=== PATIENT | male | born 1945 | race Caucasian/White ===

== ENCOUNTER 2024-03-05 05:54 | Day surgery (SDC) | payer OTHER ==
[2024-02-13 14:14] VITALS: BP 120/77
[~2024-03-05] VITALS: Ht 180.3 cm; Wt 79.5 kg
[~2024-03-05 05:54] MED LIST: CALCIUM500 MG PO; CEFAZOLIN SODIUM 2 GM/20 ML SYR IV SCH; COD LIVER OIL1 EAC2 PO; COREG12.5 MG PO; COZAAR100 MG PO; EFFEXOR XR75 MG PO; IBLOOD GLUCOSE TEST STRIP 1 EA TEST VI PRN; LACTATED RINGER'S 1,000 ML IV SCH; LIDOCAINE HCL 1% 5 ML SDV INJ ONE; LIPITOR10 MG; MIDAZOLAM HCL 5 MG/5 ML VIAL IV PRN; OZEMPIC1 MG/0.71 SQ; PROTONIX40 MG PO; REFRESH OPTIVE15 ML; REMERON30 M1 PO; SYNJARDY 5-5001 EACH PO; TOUJEO MAX300 UNIT/1; fentaNYL citrate 100 MCG/2 ML VIAL IV PRN
[2024-03-05 06:09] VITALS: BP 128/79
[2024-03-05 06:22] LABS: BASOPHILS 1.2 % (0-2); EOSINOPHILS 4.5 % (0-6); HEMATOCRIT 38.4 % (35.0-50.0); HEMOGLOBIN 12.8 g/dL (12.0-18.0); LYMPHOCYTES 26.8 % (24-44); MCH 33.1 (27-36); MCHC 33.5 g/dl (30-36); MCV 98.8 fl (81-99); MONOCYTES 6.6 % (0-12); NEUTROPHILS 60.9 % (39-80); PLATELET COUNT 294 K/uL (140-440); RBC 3.88 M/ul (4.3-5.7); RDW 14.9 (10.5-15.0)
[2024-03-05] MEDS ORDERED: GLUCOSAMINE HC500 MG PO (06:23)
[2024-03-05 06:41] LABS: ALBUMIN 3.6 g/dL (3.4-5.0); ANION GAP 14.1 (7-21); BILIRUBIN, TOTAL 0.3 ng/dL (0.2-1.0); BUN/CREATININE RATIO 17.53 (6.0-28.6); CALCIUM 8.9 mg/dL (8.5-10.1); CREATININE, SERUM 1.54 mg/dL (0.70-1.30); POTASSIUM 4.1 mmol/L (3.5-5.1); PROTEIN, TOTAL 7.2 g/dL (6.4-8.2)
[2024-03-05] MEDS ORDERED: LIDOCAINE HCL 2% 5 ML SDV ONE (06:50)
[2024-03-05] MEDS ORDERED: propofoL 200 MG/20 ML VIAL ONE (06:50)
[2024-03-05] MEDS ORDERED: IBLOOD GLUCOSE TEST STRIP 1 EA TEST VI PRN (07:00)
[2024-03-05] MEDS ORDERED: CEFAZOLIN SODIUM 2 GM/20 ML SYR IV SCH (07:00)
[2024-03-05] MEDS ORDERED: LIDOCAINE HCL 1% 5 ML SDV INJ ONE (07:00)
[2024-03-05] MEDS ORDERED: LACTATED RINGER'S 1,000 ML IV SCH (07:00)
--- NOTE | 2024-03-05 07:53 | NUR ---
03/05/24 0755 Archana Royal [id number]-PT ARRIVES TO PACU RESTING SEMI FOWLERS, PT TALKING W/ STAFF DENIES PAIN, C/O NAUSEA BUT REPORTS THIS IS CHRONIC. VSS ON RA, RR EVEN AND UNLABORED.
[2024-03-05] MEDS ORDERED: ondansetron HCL 4 MG/2 ML VIAL IV ONE (08:15)
[2024-03-05 08:17] VITALS: BP 130/78
--- NOTE | 2024-03-05 09:48 | OR ---
[facility] [address], [place] [address] Signed DATE OF OPERATION: 03/05/2024 SURGEON: Gibson Delgado MD PREOPERATIVE DIAGNOSIS: 1. Chronic gastroesophageal reflux disease with generalized abdominal pain, nausea, and bloating. 2. Dark stools. 3. History of peptic ulcer disease in 2012. 4. Chronically dilated pancreatic and common bile duct, status post cholecystectomy. POSTOPERATIVE DIAGNOSIS: Questionable tiny healing ulcer in pyloric bulb. PROCEDURE: Esophagogastroduodenoscopy with CLOtest and biopsies of the antrum. ESTIMATED BLOOD LOSS: None. INDICATIONS: Jay Jay is a 78-year-old significantly disabled gentleman, who has been dealing with chronic acid reflux associated with generalized abdominal pain, nausea, and bloating for many years. In fact, he had his gallbladder out a number of years ago. He now has a dilated pancreatic and common bile duct. He has been to multiple upper and lower endoscopies. Dr. Shane Tabares performed his upper endoscopy and colonoscopy in 2012. Apparently, he had a gastric ulcer at that time. H pylori was negative. He then had upper and lower endoscopy with Dr. Trace Freeman, which was unremarkable. He has been using Protonix 40 mg each day. He just went to a right total hip replacement a number of months ago in [place], [place]. He was on aspirin for 30 days postoperatively. Overall, he seems to done well in that regard. He is worried about his hemochromatosis. He said he has been treated in three years. He had his hemoglobin is about 14. He has been reviewing this with his primary care provider. He has been declining additional colonoscopies despite his father having colon cancer at age 60. He said he cannot tolerate the rapid MiraLAX bowel prep. He is aware that he can take MiraLAX slowly throughout the entire day along with some Dulcolax tablets. He did have a CT scan of his abdomen and pelvis in [place], [place] in September of 2023. It showed an atrophic pancreas with his dilated pancreatic and common bile ducts. No obvious masses. He was asked to see me with respect to his ongoing symptoms. He thinks he might have been having some dark stools. In the office, I gave him a pamphlet on upper endoscopy. Electronically Signed By: GIBSON DELGADO MD 03/05/24 0948 PATIENT NAME: JAY JAY DALEY OPERATIVE REPORT DATE OF : 47 REPORT #: [id number] PHYSICIAN: GIBSON DELGADO MD PCP: OTHER PCP REPORT IS CONFIDENTIAL AND NOT TO BE RELEASED WITHOUT AUTHORIZATION [facility] [address], [place] [address] Signed He recalls this as well. There is risk including, but not limited to gas bloating, crampy abdominal pain, bleeding, perforation requiring surgery, and missed diagnosis. We also reviewed the fact that no laxatives are needed for the upper endoscopy. He also has a very flexed stiff neck and significant medical issues. He also has decreased functional status. He clearly needs monitored anesthesia care with propofol infusion. He required preoperative blood work and an EKG. We were able to get those from his recent hip replacement. He said his brother would take him home afterwards. His brother declined any surgical updates. Jay Jay had expressed understanding and wished to proceed. DESCRIPTION OF PROCEDURE: Jay Jay was taken into our endoscopy suite and placed in the supine semi-recumbent position. He was given monitored anesthesia care with propofol infusion. A bite block was utilized. He was given preoperative antibiotics for his hip replacement. The adult gastroscope was introduced and advanced under direct visualization of camera into the third portion of the duodenum. He had nice clean green bile in his duodenum. No obvious concerns in the duodenum with the forward viewing scope. He had might be a very tiny healing ulcer in his pyloric bulb, otherwise quite unremarkable. The stomach was similar. We went and took a biopsy of the antrum for CLOtest as well as pathologic review. Upon retroflexion of scope, we really cannot appreciate an obvious hiatal hernia. We could not appreciate an obvious hiatal hernia. The scope was withdrawn through the area of the GE junction, which was compliant without stricture. There was no gastric or esophageal varices. Because his head is constantly flexed, his GE junction is around 42 cm from the incisors. There was very little if any disruption to the Z-line. There was no Rush mucosa. No distal esophagitis. The middle and upper esophagus were unremarkable. After this, the gas was suctioned out. The gastroscope removed. Jay Jay tolerated the procedure quite well. RECOMMENDATIONS: I will see Jay Jay back in my office in 7 to 14 days to review his biopsy results. I think he will do fine on his ongoing proton pump inhibitor. Gibson Delgado MD ALB/MARCL /[id number] Electronically Signed By: GIBSON DELGADO MD 03/05/24 0948 PATIENT NAME: JAY JAY DALEY OPERATIVE REPORT DATE OF : 47 REPORT #: [id number] PHYSICIAN: GIBSON DELGADO MD PCP: OTHER PCP REPORT IS CONFIDENTIAL AND NOT TO BE RELEASED WITHOUT AUTHORIZATION [address] [place], [place] [address] Signed cc: [facility] Patient Chart Gibson Delgado MD Copies: GIBSON DELGADO MD ~ Electronically Signed By: GIBSON DELGADO MD 03/05/24 0948 PATIENT NAME: JAY JAY DALEY OPERATIVE REPORT DATE OF : 47 REPORT #: [id number] PHYSICIAN: GIBSON DELGADO MD PCP: OTHER PCP REPORT IS CONFIDENTIAL AND NOT TO BE RELEASED WITHOUT AUTHORIZATION
--- NOTE | 2024-03-05 19:35 | EKG ---
[facility] [address] [facility] [place] [address] Signed Normal sinus rhythm Normal ECG No previous ECGs available Confirmed by Stefania Sigala MD ([id number]) on 03/05/2024 7:34:48 PM Electronically Signed By: STEFANIA SIGALA MD 03/05/241934 PATIENT NAME: WENCESLAO DALEY Electrocardiogram DATE OF : 47 PHYSICIAN: STEFANIA SIGALA MD REPORT #: [id number] REPORT IS CONFIDENTIAL AND NOT TO BE RELEASED WITHOUT AUTHORIZATION
--- NOTE | 2024-03-09 10:41 | PATH ---
[facility] [address] [facility] [place], [place] [address] Signed SPECIMEN(S): A ANTRUM/PYLORUS BIOPSY SPECIMEN SOURCE: A. ANTRUM/PYLORUS BIOPSY v CLINICAL HISTORY: Pre-: Nausea, GERD, bloating, dark stools. Post: Unremarkable FINAL PATHOLOGIC DIAGNOSIS: Stomach, antrum, biopsy: - Gastric antral mucosa with no significant pathologic changes - Negative for Helicobacter pylori with HE stains BRP MICROSCOPIC EXAMINATION: Histologic sections of all submitted blocks are examined by light microscopy. These findings, together with the gross examination, support the pathologic diagnosis. GROSS DESCRIPTION: The specimen, labeled and designated "Briana Daley, antrum/pylorus biopsy," is received in formalin and consists of one arriaga soft tissue fragment, 0.3 cm. Entirely submitted in (A1). AB (under the direct supervision of a pathologist) The Gross Description was prepared using a voice recognition system. The report was reviewed for accuracy; however, sound-alike word errors, addition and/or deletions may occur. If there is any question about this report, please contact Client Services. ADDITIONAL NOTES: Immunohistochemical and/or in situ hybridization studies if performed in this case included appropriate positive controls that reacted as expected. This test was developed and its performance characteristics determined by [facility]. It has not been cleared or approved by the U.S. Food and Drug Administration. The FDA has determined that such clearance or approval is not necessary. This test is used for clinical purposes. It should not be regarded as investigational or for research. [facility] is certified under the Clinical Laboratory Improvement Amendments of 1988 (CLIA) as qualified to perform high complexity clinical PATIENT NAME: WENCESLAO DALEY PATHOLOGY DATE OF : 47 REPORT #: [id number] PHYSICIAN: NATHAN PATHOLOGY PCP: OTHER PCP REPORT IS CONFIDENTIAL AND NOT TO BE RELEASED WITHOUT AUTHORIZATION [facility] [address] [place] [address] Signed laboratory testing. PERFORMING LABORATORY: Technical component was performed by [facility], [address] [place] [address] (CLIA# [id number]). Professional interpretation was performed by [facility] - [facility], [address] [place] [address] (CLIA#: [id number]). Diagnostician: Antonio Gomez MD Pathologist Electronically Signed 03/09/2024 Copies: ~ PATIENT NAME: WENCESLAO DALEY PATHOLOGY DATE OF : 47 REPORT #: [id number] PHYSICIAN: NATHAN PATHOLOGY PCP: OTHER PCP REPORT IS CONFIDENTIAL AND NOT TO BE RELEASED WITHOUT AUTHORIZATION
== END 2024-03-05 08:25 | disposition home or self-care (01) ==
LOC: DS 05:54
PROVIDERS: ATTEND Colon & Rectal Surgery
PROC: 0DB68ZX Excision of Stomach, Via Natural or Artificial Opening Endoscopic, Diagnostic (ICD-10-PCS; principal; 2024-03-05 07:30)
DX: K31.89 Other diseases of stomach and duodenum (principal); K21.9 Gastro-esophageal reflux disease without esophagitis; K83.8 Other specified diseases of biliary tract; K86.89 Other specified diseases of pancreas; Z87.11 Personal history of peptic ulcer disease; E83.119 Hemochromatosis, unspecified; F41.9 Anxiety disorder, unspecified; I12.9 Hypertensive chronic kidney disease with stage 1 through stage 4 chronic kidney disease, or unspecified chronic kidney disease; E11.22 Type 2 diabetes mellitus with diabetic chronic kidney disease; N18.9 Chronic kidney disease, unspecified; E78.5 Hyperlipidemia, unspecified; G47.33 Obstructive sleep apnea (adult) (pediatric); Z80.0 Family history of malignant neoplasm of digestive organs; Z88.8 Allergy status to other drugs, medicaments and biological substances; Z79.899 Other long term (current) drug therapy
CPT/HCPCS: 00731; 36415; 80053; 85025; 87077; 88305; 93005; 93010; J0690; J2003; J2405; J2704; J7121